=== PATIENT | female | born 1995 | race Caucasian/White ===

== ENCOUNTER 2019-02-16 17:56 | Emergency (ER) | payer BC ==
[~2019-02-16] VITALS: Ht 170.2 cm; Wt 66.7 kg
[2019-02-16 17:56] VITALS: BP 123/90
--- NOTE | 2019-02-16 17:56 | NUR ---
PATIENT BIB [facility] TO ER CHAIR [facility]
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
--- NOTE | 2019-02-16 18:41 | NUR ---
Dr. Augustine evaluating patient.
--- NOTE | 2019-02-16 18:59 | NUR ---
PATIENT TAKEN TO XR FOR RT. TIB/FIB. VIA W/C. WITH [facility]
--- NOTE | 2019-02-16 19:02 | NUR ---
PATIENT BACK FROM XR VIA WHEEL CHAIR
[2019-02-16 19:17] VITALS: BP 119/84
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
== END 2019-02-16 19:17 ==
LOC: MED 17:56
DX: S80.12XA Contusion of left lower leg, initial encounter (principal); Z88.8 Allergy status to other drugs, medicaments and biological substances; V89.2XXA Person injured in unspecified motor-vehicle accident, traffic, initial encounter; Y93.89 Activity, other specified; Y92.411 Interstate highway as the place of occurrence of the external cause; Y99.8 Other external cause status
CPT/HCPCS: 73590; 99283